=== PATIENT | male | born 2000 | race Caucasian/White ===

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

== ENCOUNTER 2024-10-27 18:45 | Emergency (ER) | payer SELFPAY ==
[2024-10-27] MEDS ORDERED: Ondansetron 4 MG Tab.DIS PO ONE (18:46)
[2024-10-27 19:13] VITALS: BP 157/71; PULSE 100
[2024-10-27] MEDS: Sodium Chloride 0.9% 1,000 ML IV SCH (19:27)
[2024-10-27] MEDS: Ondansetron 4 MG/2 ML SDV IVPUSH ONE (19:31)
[2024-10-27] MEDS: Sodium Chloride 0.9% 10 ML Syringe FLUSH PRN (19:31)
[2024-10-27 19:45] LABS: BASOPHILS PERCENT AUTO 0.2 % (0.3-3.8); EOSINOPHILS PERCENT AUTO 0.2 % (0.1-6.8); HEMATOCRIT 45.5 % (38.3-50.1); HEMOGLOBIN 15.7 g/dL (12.9-17.7); LYMPHOCYTES ABSOLUTE AUTO 1.1 x10-3/uL (0.5-4.5); LYMPHOCYTES PERCENT AUTO 9.7 % (15.8-45.3); MEAN CORPUSCULAR HEMOGLOBIN 31.3 pg (27.0-33.3); MEAN CORPUSCULAR HGB CONC 34.5 g/dL (28.7-35.3); MEAN CORPUSCULAR VOLUME 90.7 fL (80.8-98.7); MEAN PLATELET VOLUME 7.7 fL (6.7-11.0); MONOCYTES ABSOLUTE AUTO 0.8 x10-3/uL (0.0-1.2); MONOCYTES PERCENT AUTO 6.4 % (5.5-15.2); NEUTROPHILS ABSOLUTE AUTO 9.9 x10-3/uL (1.7-6.9); NEUTROPHILS PERCENT AUTO 83.5 % (40.3-71.8); PLATELET COUNT,PLT 278 x10(3)uL (117-477); RED BLOOD CELL COUNT 5.02 x10(6)uL (3.90-5.90); RED CELL DISTRIBUTION WIDTH 12.3 % (12.4-15.0); WHITE BLOOD CELL COUNT,WBC 11.8 x10-3/uL (3.2-10.1)
[2024-10-27 19:51] LABS: BLOOD UREA NITROGEN,BUN 29 mg/dL (7-18); BUN/CREATININE RATIO 22.3 (9-20); CALCIUM 9.1 mg/dL (8.6-10.2); CARBON DIOXIDE,CO2 27 mmol/L (21-32); CHLORIDE,CL 99 mmol/L (100-110); CREATININE 1.3 mg/dL (0.70-1.30); EST CRCL DRUG DOSING (CG) 67.46 mL/min; ESTIMATED GFR 79 mL/min (>60); GLUCOSE RANDOM 95 mg/dL (80-116); POTASSIUM,K 4.1 mmol/L (3.5-5.3); SODIUM,NA 136 mmol/L (135-145)
[2024-10-27] MEDS ORDERED: Lidocaine/Epineph/Tetracaine 3 ML Syringe TOP ONE (20:20)
== END 2024-10-27 20:35 | disposition home or self-care (01) ==
LOC: FB.ED 18:45
DX: A08.4 Viral intestinal infection, unspecified (principal); F17.210 Nicotine dependence, cigarettes, uncomplicated; Z79.899 Other long term (current) drug therapy
CPT/HCPCS: 36415; 80048; 85025; 87428; 96361; 96374; 99283; 99284; J2405; J7030; Q0162